=== PATIENT | male | born 1970 | race Caucasian/White ===

== ENCOUNTER 2016-07-05 02:37 | Emergency (ER) | payer OTHER ==
[2016-07-05] MEDS ORDERED: diphenhydrAMINE HCL 25 MG CAPSULE (FP) PO ONE ×2 (03:00→03:19)
--- NOTE | 2016-07-05 03:00 | PDOC ---
History of Present Illness - General History Source: Patient <Christo Jackson - Last Filed: 07/05/16 03:06> - General History Source: Patient Exam Limitations: No Limitations - History of Present Illness Initial Comments: 07/05/16 03:02 The patient is a 45 year old male, with no significant past medical history, who presents to the emergency department with right eye swelling onset tonight. He reports discomfort from his right eye. He states that he was having cold like symptoms last week for which he took both Nyquil and Dayquil tablets. He notes that his eye started to have some mild itchiness, for which he began to rub it. This continued for the next 3 days, until yesterday when he got eye drops from the pharmacy. After applying, he went to sleep and woke up with his right eyelid swollen and noticed some mild discharge. The patient denies chest pain, shortness of breath, headache and dizziness. Denies fever, chills, nausea, vomit, diarrhea and constipation. Allergies: None Past surgical history: None reported Social history: No alcohol, tobacco or drug use reported <Christo Rodriguez - Last Filed: 07/05/16 03:09> - General Chief Complaint: Eye Problem Stated Complaint: EYE PROBLEM-SWELLING Time Seen by Provider: 07/05/16 02:55 Past History - Past Medical History Other medical history: denies - Immunization History Immunization Up to Date: Yes - Psycho/Social/Smoking Cessation Hx Anxiety: No Suicidal Ideation: No Smoking History: Never smoked Have you smoked in the past 12 months: No Number of Cigarettes Smoked Daily: 0 Cigars Per Day: 0 Information on smoking cessation initiated: No Hx Alcohol Use: No Drug/Substance Use Hx: No Substance Use Type: None <[email or web address] - Last Filed: 07/05/16 03:06> <Christo Rodriguez - Last Filed: 07/05/16 03:09> - Past Medical History Allergies/Adverse Reactions: Allergies Allergy/AdvReac Type Severity Reaction Status Date / Time No Known Allergies Allergy Verified 07/05/16 02:49 Home Medications: Ambulatory Orders Ciprofloxacin 0.3% Eye Drops [Ciloxan 0.3% Eye Drops -] 1 drop OD TID #10 drops 07/05/16 Diphenhydramine HCl [Benadryl Capsules -] 25 mg PO TID #30 capsule 07/05/16 Review of Systems - Review of Systems Able to Perform ROS?: Yes Comments:: 07/05/16 03:04 GENERAL/CONSTITUTIONAL: No fever or chills. No weakness. HEAD, EYES, EARS, NOSE AND THROAT: +Right eyelid swelling and discomfort. No ear pain or discharge. No sore throat. CARDIOVASCULAR: No chest pain or shortness of breath RESPIRATORY: No cough, wheezing, or hemoptysis. GASTROINTESTINAL: No nausea, vomiting, diarrhea or constipation. GENITOURINARY: No dysuria, frequency, or change in urination. MUSCULOSKELETAL: No joint or muscle swelling or pain. No neck or back pain. SKIN: No rash NEUROLOGIC: No headache, vertigo, loss of consciousness, or change in strength/ sensation. ENDOCRINE: No increased thirst. No abnormal weight change HEMATOLOGIC/LYMPHATIC: No anemia, easy bleeding, or history of blood clots. ALLERGIC/IMMUNOLOGIC: No hives or skin allergy. <Christo Rodriguez - Last Filed: 07/05/16 03:09> *Physical Exam - Vital Signs Last Vital Signs Temp Pulse Resp BP Pulse Ox 97.5 F L 77 20 121/74 100 07/05/16 02:49 07/05/16 02:49 07/05/16 02:49 07/05/16 02:49 07/05/16 02:49 <Christo Jackson - Last Filed: 07/05/16 03:06> - Vital Signs Last Vital Signs Temp Pulse Resp BP Pulse Ox 97.5 F L 77 20 121/74 100 07/05/16 02:49 07/05/16 02:49 07/05/16 02:49 07/05/16 02:49 07/05/16 02:49 - Physical Exam Comments: 07/05/16 03:04 GENERAL: Awake, alert, and fully oriented, in no acute distress HEAD: No signs of trauma, normocephalic, atraumatic EYES: +Right eyelid swelling, small discharge, minimal erythema. PERRLA, EOMI ENT: Auricles normal inspection, hearing grossly normal, nares patent, oropharynx clear without exudates. Moist mucosa LUNGS: No distress, speaks full sentences, clear to auscultation bilaterally HEART: Regular rate and rhythm, normal S1 and S2, no murmurs, rubs or gallops, peripheral pulses normal and equal bilaterally. NEUROLOGICAL: Cranial nerves II through XII grossly intact. Normal speech, normal gait, no focal sensorimotor deficits SKIN: Warm, Dry, normal turgor, no rashes or lesions noted. <Christo Rodriguez - Last Filed: 07/05/16 03:09> Medical Decision Making - Medical Decision Making 07/05/16 03:07 Dr. Jackson: The scribe's documentation has been prepared under my direction and personally reviewed by me in its entirery. I confirm that the note above accurately reflects all work, treatment, procedures, and medical decision making performed by me. patient with ptoms for the last several weeks. Woke up this morning with right eye crusted shut. Patient with upper lid swelling. We'll treat as conjunctivitis. <Christo Jackson - Last Filed: 07/05/16 03:06> *DC/Admit/Observation/Transfer - Discharge Dispostion Admit: No <Christo Jackson - Last Filed: 07/05/16 03:06> - Attestations Scribe Attestion: 07/05/16 03:05 Documentation prepared by Christo Rodriguez, acting as medical oncologist for Christo Jackson DO <Christo Rodriguez - Last Filed: 07/05/16 03:09> Diagnosis at time of Disposition: Conjunctivitis Qualifiers: Conjunctivitis type: acute Acute conjunctivitis type: bacterial Laterality: right Qualified Code(s): H10.31 - Unspecified acute conjunctivitis, right eye - Discharge Dispostion Disposition: HOME Condition at time of disposition: Stable - Prescriptions Prescriptions: Diphenhydramine HCl [Benadryl Capsules -] 25 mg PO TID #30 capsule Ciprofloxacin 0.3% Eye Drops [Ciloxan 0.3% Eye Drops -] 1 drop OD TID #10 drops - Patient Instructions Printed Discharge Instructions: DI for Conjunctivitis
[2016-07-05] MEDS ORDERED: CIPROFLOXACIN 0.3% EYE DROPS 5 ML BOTTLE OD STA (03:01)
[2016-07-05 03:10] VITALS: BP 121/74; PULSE 77; TEMP 97.5; BMI 22.8
[2016-07-05] MEDS ORDERED: CIPROFLOXACIN HCL 0.3% OPHTH 2.5ML BOTTLE ONE (03:19)
== END 2016-07-05 03:52 | disposition home or self-care (01) ==
LOC: JER 02:37
DX: H10.31 Unspecified acute conjunctivitis, right eye (principal)
CPT/HCPCS: 99281-25

== ENCOUNTER 2016-07-06 07:14 | Emergency (ER) | payer OTHER ==
[2016-07-06 07:25] VITALS: BP 129/82; PULSE 95; TEMP 98.8; BMI 25.0
--- NOTE | 2016-07-06 07:57 | PDOC ---
History of Present Illness - General Chief Complaint: Eye Problem Stated Complaint: EYE PROBLEM-SWELLING Time Seen by Provider: 07/06/16 07:41 History Source: Patient Exam Limitations: No Limitations - History of Present Illness Initial Comments: 07/06/16 07:52 45 yr male with right eyelid swelling, itching, discharge form eye for 4 days seen here yesterday for same given eye drops and bendaryl. Pt states slight improvement but not much better. no fever, no pain no vision changes. no medical history or allergies. Severity: mild Associated Symptoms: reports: denies symptoms Past History - Past Medical History Allergies/Adverse Reactions: Allergies Allergy/AdvReac Type Severity Reaction Status Date / Time No Known Allergies Allergy Verified 07/06/16 07:24 Home Medications: Ambulatory Orders Ciprofloxacin 0.3% Eye Drops [Ciloxan 0.3% Eye Drops -] 1 drop OD TID #10 drops 07/05/16 Diphenhydramine HCl [Benadryl Capsules -] 25 mg PO TID #30 capsule 07/05/16 Cephalexin Monohydrate [Keflex -] 500 mg PO Q6H #20 capsule 07/06/16 Sulfamethoxazole/Trimethoprim [Bactrim Ds -] 2 tab PO BID #20 tablet 07/06/16 Other medical history: NONE - Surgical History Other Surgical History: 07/06/16 07:53 none - Immunization History Immunization Up to Date: Yes - Psycho/Social/Smoking Cessation Hx Anxiety: No Suicidal Ideation: No Smoking History: Never smoked Have you smoked in the past 12 months: No Number of Cigarettes Smoked Daily: 0 Cigars Per Day: 0 Hx Alcohol Use: No Drug/Substance Use Hx: No Substance Use Type: None Review of Systems - Review of Systems Able to Perform ROS?: Yes Is the patient limited Lithuanian proficient: Yes Constitutional: No: Symptoms Reported HEENTM: Yes: See HPI *Physical Exam - Vital Signs Last Vital Signs Temp Pulse Resp BP Pulse Ox 98.8 F 95 H 20 129/82 100 07/06/16 07:21 07/06/16 07:21 07/06/16 07:21 07/06/16 07:21 07/06/16 07:21 - Physical Exam General Appearance: Yes: Nourished, Appropriately Dressed HEENT: positive: EOMI, TAD, Other (right eye with eyelid swelling upper with scant discharge. no surrounding cellulitus, no orbital tenderness, EOMI without pain , no visual changes) Neck: negative: Tender Respiratory/Chest: positive: Lungs Clear, Normal Breath Sounds Cardiovascular: positive: Regular Rhythm Gastrointestinal/Abdominal: positive: Normal Bowel Sounds, Soft Extremity: positive: Normal Inspection Integumentary: positive: Normal Color, Dry, Warm Neurologic: positive: Fully Oriented, Alert, Normal Mood/Affect, Normal Response , Motor Strength 5/5 Medical Decision Making - Medical Decision Making 07/06/16 07:55 cc: right eye conjunctivitis possible early preseptal cellulitus will continue cipro drops, benadryl for itching, will add PO keflex and bactrim strict follow up with opthomology discussed with pt and he understands via danish translation the importance of follow up . *DC/Admit/Observation/Transfer Diagnosis at time of Disposition: Conjunctivitis Qualifiers: Conjunctivitis type: acute Acute conjunctivitis type: unspecified Laterality: right Qualified Code(s): H10.31 - Unspecified acute conjunctivitis, right eye - Discharge Dispostion Disposition: HOME Condition at time of disposition: Good - Prescriptions Prescriptions: Sulfamethoxazole/Trimethoprim [Bactrim Ds -] 2 tab PO BID #20 tablet Cephalexin Monohydrate [Keflex -] 500 mg PO Q6H #20 capsule - Referrals Referrals: Nancy Vann MD [Staff Physician] - - Patient Instructions Additional Instructions: follow with the eye doctor Dr.Prevor Schumacher within the next 1-3 days call today to make appointment, tell them you were in the ER and need to be followed up continue the eye drops start taking the antibiotics Kelfex and Bactrim as directed wash hands frequently, do not rub or touch the eyes you can apply a warm compress to the eye every 3hrs for 20 minutes return to ER for any fever, chills, pain or increasing redness or swelling to the eye
== END 2016-07-06 08:06 | disposition home or self-care (01) ==
LOC: JER 07:14
DX: H10.31 Unspecified acute conjunctivitis, right eye (principal)
CPT/HCPCS: 99281-25